=== PATIENT | male | born 1975 | race Caucasian/White ===

== ENCOUNTER 2020-09-23 11:56 | Emergency (ER) | payer OTHER ==
--- NOTE | 2020-09-23 13:13 | RAD REPORT ---
EXAM DESCRIPTION: Sophy Single View09/23/2020 1:05 pm CLINICAL HISTORY: cough COMPARISON: none FINDINGS: The lungs appear clear of acute infiltrate. The heart is normal size IMPRESSION: No acute abnormalities displayed
[2020-09-23 13:57] LABS: SARS-COV-2 RT PCR POSITIVE (NEGATIVE)
--- NOTE | 2020-09-23 14:05 | EDPHYS ---
Physician Documentation [facility] Name: Kulwant King Age: 45 yrs Sex: Male : 1975 Arrival Date: 09/23/2020 Time: 11:59 Bed 16 Private MD: ED Physician Eyad Johnson HPI: 09/23 12:18 This 45 yrs old Male presents to ER via Ambulatory with complaints of Cough, jmm Fever, Chills. 12:18 The patient or guardian reports cough. Onset: The symptoms/episode began/occurred jmm gradually, 5 day(s) ago. Modifying factors: The symptoms are alleviated by nothing, the symptoms are aggravated by nothing. Associated signs and symptoms: Pertinent positives: fever, sore throat. The patient has experienced similar episodes in the past. Historical: - Allergies: 12:12 PENICILLINS; ll1 - PMHx: 12:12 None; ll1 - PSHx: 12:12 Vasectomy; ll1 - Immunization history:: Flu vaccine is not up to date. - Social history:: Smoking status: Patient denies any tobacco usage or history of. ROS: 12:18 Abdomen/GI: Negative for abdominal pain, nausea, vomiting, diarrhea, and constipation. jmm 12:18 Constitutional: Positive for fever. 12:18 ENT: Positive for sore throat. 12:18 Respiratory: Positive for cough. 12:18 Abdomen/GI: 12:18 All other systems are negative. Exam: 12:18 Constitutional: This is a well developed, well nourished patient who is awake, alert, jmm and in no acute distress. Head/Face: atraumatic. Eyes: EOMI, no conjunctival erythema appreciated ENT: Moist Mucus Membranes Neck: Trachea midline, Supple Chest/axilla: Normal chest wall appearance and motion. Cardiovascular: Regular rate and rhythm. No edema appreciated Respiratory: Normal respirations, no respiratory distress appreciated Abdomen/GI: Non distended, soft Back: Normal ROM Skin: General appearance color normal MS/ Extremity: Moves all extremities, no obvious deformities appreciated, no edema noted to the lower extremities Neuro: Awake and alert, normal gait Psych: Behavior is normal, Mood is normal, Patient is cooperative and pleasant Vital Signs: 12:12 BP 161 / 72; Pulse 92; Resp 17; Temp 99.6; Pulse Ox 99% ; Weight 117.93 kg; Height 5 ll1 ft. 10 in. (177.80 cm); Pain 6/10; 13:15 BP 130 / 70; Pulse 80; Resp 16; Pulse Ox 98% on R/A; vg1 12:12 Body Mass Index 37.31 (117.93 kg, 177.80 cm) ll1 MDM: 12:18 Patient medically screened. [facility] 14:02 Data reviewed: vital signs, nurses notes. Counseling: I had a detailed discussion with trip the patient and/or guardian regarding: the historical points, exam findings, and any diagnostic results supporting the discharge/admit diagnosis, lab results, radiology results, the need for outpatient follow up, to return to the emergency department if symptoms worsen or persist or if there are any questions or concerns that arise at home. ED course: Patient is alert and non toxic in appearance in the ED. No signs of resp distress. Advised to quarantine for duration of symptoms. Patient is otherwise given strict return precautions. Patient understood and agrees with the plan of care. . 09/23 12:18 Order name: Flu [facility] 09/23 12:33 Order name: COVID-19 : Document "Date of Symptom Onset" if Symptomatic. [facility] 09/23 12:34 Order name: Chest Single View XRAY [facility] 09/23 13:07 Order name: CORONAVIRUS [facility] 09/23 13:07 Order name: Influenza Screen (A [facility] 09/23 13:57 Order name: COVID-19/FLU A+B; Complete Time: 13:57 [facility] 09/23 13:14 Order name: RAD; Complete Time: 13:27 EDWA Administered Medications: No medications were administered Disposition: 09/23/20 14:04 Discharged to Home. Impression: Coronavirus infection, unspecified. - Condition is Stable. - Discharge Instructions: COVID-19. - Prescriptions for ivermectin 3 mg Oral tablet - take 6 tablet by ORAL route as directed One dose now, and 2nd dose on day 3; 12 tablet. Prednisone 20 mg Oral Tablet - take 3 tablet by ORAL route once daily for 5 days; 15 tablet. Albuterol Sulfate 90 mcg/actuation - inhale 1-2 puff by INHALATION route every 4-6 hours; 1 Inhaler. - Medication Reconciliation Form, Thank You Letter, Antibiotic Education, Prescription Opioid Use form. - Follow up: Private Physician; When: 2 - 3 days; Reason: Recheck today's complaints, Continuance of care, Re-evaluation by your physician. Addendum: 09/28/2020 19:19 Co-signature as Attending Physician, Eyad Johnson MD I agree with the assessment and t w4 plan of care. Signatures: Dispatcher [employer] EDMS Stefano Siddiqui, Eyad Thompson MD MD tw4 Michelle Bobo RN RN vg1 Jose Tao RN RN ll1 Corrections: (The following items were deleted from the chart) 09/23 14:20 14:04 09/23/2020 14:04 Discharged to Home. Impression: Coronavirus infection, vg1 unspecified. Condition is Stable. Forms are Medication Reconciliation Form, Thank You Letter, Antibiotic Education, Prescription Opioid Use. Follow up: Private Physician; When: 2 - 3 days; Reason: Recheck today's complaints, Continuance of care, Re-evaluation by your physician. trip
--- NOTE | 2020-09-23 14:05 | ER ---
Nurse's Notes [facility] Name: Kulwant King Age: 45 yrs Sex: Male : 1975 Arrival Date: 09/23/2020 Time: 11:59 Bed 16 Private MD: Diagnosis: Coronavirus infection, unspecified Presentation: 09/23 12:12 Chief complaint: Patient states: Cough, chills, body aches, fever for 4 days. 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 Coronavirus screen: Client denies travel out of the [place] in the last 14 days. chills, congestion, cough unrelated to allergies, fatigue, fever, muscle pain, shaking with chills, shortness of breath, Client presents with at least one sign or symptom that may indicate coronavirus-19. Standard/surgical mask placed on the client. Ebola Screen: Patient denies travel to an Ebola-affected area in the 21 days before illness onset. Initial Sepsis Screen: Does the patient meet any 2 criteria? HR > 90 bpm. No. Patient's initial sepsis screen is negative. Does the patient have a suspected source of infection? Yes: Productive cough/pneumonia. Risk Assessment: Do you want to hurt yourself or someone else? Patient reports no desire to harm self or others. Onset of symptoms was September 19, 2020. 12:12 Method Of Arrival: Ambulatory [facility] 12:12 Acuity: LASHONDA 3 ll1 Historical: - Allergies: 12:12 PENICILLINS; ll1 - PMHx: 12:12 None; ll1 - PSHx: 12:12 Vasectomy; ll1 - Immunization history:: Flu vaccine is not up to date. - Social history:: Smoking status: Patient denies any tobacco usage or history of. Screenin:18 Abuse screen: Denies threats or abuse. Nutritional screening: No deficits noted. vg1 Tuberculosis screening: No symptoms or risk factors identified. Fall Risk No fall in past 12 months (0 pts). No secondary diagnosis (0 pts). No IV (0 pts). Ambulatory Aid- None/Bed Rest/Nurse Assist (0 pts). Gait- Normal/Bed Rest/Wheelchair (0 pts) Mental Status- Oriented to own ability (0 pts). Total Finch Fall Scale indicates No Risk (0-24 pts). Assessment: 13:16 General: Appears in no apparent distress. comfortable, Behavior is calm, cooperative. vg1 Pain: Denies pain. Neuro: Level of Consciousness is awake, alert, obeys commands, Oriented to person, place, time, situation. Cardiovascular: Patient's skin is warm and dry. Respiratory: Airway is patent Respiratory effort is even, unlabored, Respiratory pattern is regular, symmetrical, Breath sounds are clear bilaterally. Respiratory: Reports cough that is non-productive, Denies shortness of breath pain with respiration. GI: No signs and/or symptoms were reported involving the gastrointestinal system. : No signs and/or symptoms were reported regarding the genitourinary system. EENT: No signs and/or symptoms were reported regarding the EENT system. Derm: Skin is intact, is healthy with good turgor. Musculoskeletal: Circulation, motion, and sensation intact. Vital Signs: 12:12 BP 161 / 72; Pulse 92; Resp 17; Temp 99.6; Pulse Ox 99% ; Weight 117.93 kg; Height 5 ll1 ft. 10 in. (177.80 cm); Pain 6/10; 13:15 BP 130 / 70; Pulse 80; Resp 16; Pulse Ox 98% on R/A; vg1 12:12 Body Mass Index 37.31 (117.93 kg, 177.80 cm) ll1 ED Course: 11:59 Patient arrived in ED. ds1 12:11 Stefano Siddiqui PA is PHCP. jmm 12:11 Eyad Johnson MD is Attending Physician. [facility] 12:11 Arm band placed on. ll1 12:14 Triage completed. ll1 12:43 COVID swab sent to lab. Flu and/or RSV swab sent to lab. jp3 12:43 Patient maintains SpO2 saturation greater than 95% on room air. jp3 13:02 Placed in gown. Bed in low position. Call light in reach. Side rails up X 1. Warm jp3 blanket given. Verbal reassurance given. Pulse ox on. NIBP on. 13:03 Flu Sent. jp3 13:03 COVID-19 : Document "Date of Symptom Onset" if Symptomatic. Sent. jp3 13:11 Michelle Bobo, RN is Primary Nurse. vg1 14:20 No provider procedures requiring assistance completed. Patient did not have IV access vg1 during this emergency room visit. Administered Medications: No medications were administered Outcome: 14:04 Discharge ordered by MD. dominique 14:20 Discharged to home ambulatory. vg1 14:20 Condition: stable 14:20 Discharge instructions given to patient, Instructed on discharge instructions, follow up and referral plans. medication usage, Demonstrated understanding of instructions, follow-up care, medications, Prescriptions given X 3. 14:20 Patient left the ED. vg1 Signatures: Stefano Siddiqui PA PA jmm Sanford, Demi ds1 Renzo Demarco jp3 Michelle Bobo, RN RN vg1 Jose Tao RN RN ll1
[2020-09-23 14:36] VITALS: TEMP 99.6
[2020-09-23 14:37] VITALS: BP 130/70; O2SAT 98
== END 2020-09-23 14:20 | disposition home or self-care (01) ==
LOC: ER 11:56
DX: U07.1 COVID-19 (principal); Z88.0 Allergy status to penicillin
CPT/HCPCS: 0240U; 71045; 99284